=== PATIENT | male | born 1940 | race Caucasian/White ===

== ENCOUNTER 2023-02-23 09:40 | Outpatient (CLI) | payer OTHER, SELFPAY | END 2023-02-23 09:41 | disposition home or self-care (01) | LOC: CHSAUDIO 09:43 | PROVIDERS: PCP Physician Assistant; Visit Provider Physician Assistant | DX: H90.3 Sensorineural hearing loss, bilateral (principal) | CPT/HCPCS: 92557; 92567 ==

== ENCOUNTER 2023-03-26 09:00 | Outpatient (RCR) | payer OTHER, SELFPAY | END 2023-03-26 23:59 | disposition home or self-care (01) | LOC: ANHAUDIO 09:00 | PROVIDERS: PCP Physician Assistant; Visit Provider Physician Assistant | DX: Z46.1 Encounter for fitting and adjustment of hearing aid (principal) | CPT/HCPCS: 99199; V5261 ==